=== PATIENT | male | born 1965 | race Caucasian/White ===

== ENCOUNTER 2019-07-31 05:20 | Emergency (ER) | payer OTHER ==
[~2019-07-31] VITALS: Ht 188 cm; Wt 172.4 kg
[2019-07-31 06:43] LABS: BASOPHILS ABSOLUTE AUTO 0.07 K/mm3 (0.00-0.23); BASOPHILS PERCENT AUTO 1 % (0-2); EOSINOPHILS ABSOLUTE AUTO 0.24 K/mm3 (0.00-0.68); EOSINOPHILS PERCENT AUTO 3 % (0-6); Hematocrit 44.4 % (37.0-53.0); Hemoglobin 14.9 g/dL (13.5-17.5); IMMATURE GRAN ABSOLUTE AUTO 0.02 K/mm3 (0.00-0.10); IMMATURE GRAN PERCENT AUTO 0 % (0-1); LYMPHOCYTES ABSOLUTE AUTO 1.05 K/mm3 (0.84-5.20); LYMPHOCYTES PERCENT AUTO 11 % (21-46); MONOCYTES ABSOLUTE AUTO 0.56 K/mm3 (0.16-1.47); MONOCYTES PERCENT AUTO 6 % (4-13); Mean Corpuscular HGB 30.5 pg (26.0-34.0); Mean Corpuscular HGB Conc 33.6 g/dL (31.5-36.5); Mean Corpuscular Volume 91 fL (80-100); Mean Platelet Volume 10.6 fL (9.1-12.4); NEUTROPHILS ABSOLUTE AUTO 7.72 K/mm3 (1.96-9.15); NEUTROPHILS PERCENT AUTO 80 % (41-73); Platelet Count 203 K/mm3 (150-400); RDW Coefficient Variation 13.2 % (11.7-14.2); RDW Standard Deviation 43.7 fL (35.1-46.3); Red Blood Cell Count 4.89 M/mm3 (4.30-5.90); White Blood Cell Count 9.66 K/mm3 (4.00-11.30)
[2019-07-31 06:43] LABS: Source, Urine Clean Catch
[2019-07-31 06:45] LABS: Bilirubin, Urine Neg (Neg); Blood, Urine Neg (Neg); Glucose Qualitative, Urine 4+ (Neg); Ketones, Urine Neg (Neg); Leukocyte Esterase, Urine Neg (Neg); Nitrite, Urine Neg (Neg); Protein, Urine Neg (Neg); Urobilinogen, Urine NORM (Normal)
[2019-07-31 06:46] LABS: Appearance, Urine Clear (Clear); Color, Urine Pale Yellow (P-Yellow)
[2019-07-31 07:04] LABS: Albumin, Blood 2.8 g/dL (3.4-5.0); Albumin/Globulin Ratio 0.5 (0.8-1.8); Alk Phos 174 U/L (50-136); Anion Gap 9 mmol/L (6-16); Bilirubin, Total 0.5 mg/dL (0.1-1.0); Blood Urea Nitrogen 19 mg/dL (8-24); Bun/Creatinine Ratio 24.5 (12.0-20.0); CO2, Blood 29 mmol/L (21-32); Chloride, Blood 90 mmol/L (98-108); Creatinine, Blood 0.77 mg/dL (0.60-1.20); Globulin, Blood 5.1 g/dL (2.2-4.0); Glomerular Filtration Rate >60 (60-); Sodium, Blood 128 mmol/L (136-145); Total Protein, Blood 7.9 g/dL (6.4-8.2)
[2019-07-31 07:06] LABS: Alanine Aminotransfer (ALT/SGP 69 U/L (12-78); Aspartate Aminotrans (AST/SGOT 95 U/L (12-37); Glucose, Blood 661 mg/dL (70-99); Potassium, Blood 5.4 mmol/L (3.5-5.5)
[2019-07-31] MEDS ORDERED: METF500 PO (08:14)
== END 2019-07-31 08:29 | disposition home or self-care (01) ==
LOC: ER 05:20
PROVIDERS: Emergency Medicine
DX: S09.90XA Unspecified injury of head, initial encounter (principal); E11.65 Type 2 diabetes mellitus with hyperglycemia; I10 Essential (primary) hypertension; Z86.73 Personal history of transient ischemic attack (TIA), and cerebral infarction without residual deficits; Z79.84 Long term (current) use of oral hypoglycemic drugs; W18.30XA Fall on same level, unspecified, initial encounter; Y92.009 Unspecified place in unspecified non-institutional (private) residence as the place of occurrence of the external cause
CPT/HCPCS: 36415; 70450; 80053; 81003; 82947; 85025; 99284-25; J1815

== ENCOUNTER 2019-08-03 19:13 | Emergency (ER) | payer OTHER ==
[~2019-08-03] VITALS: Ht 180.3 cm; Wt 158.8 kg
[~2019-08-03 19:13] MED LIST: METF500 PO
[2019-08-03 21:54] LABS: Creatine Kinase MB 3.5 ng/mL (0.0-3.6)
[2019-08-03 22:05] LABS: Alanine Aminotransfer (ALT/SGP 52 U/L (12-78); Albumin, Blood 2.8 g/dL (3.4-5.0); Albumin/Globulin Ratio 0.6 (0.8-1.8); Alk Phos 114 U/L (50-136); Anion Gap 13 mmol/L (6-16); Aspartate Aminotrans (AST/SGOT 81 U/L (12-37); Blood Urea Nitrogen 26 mg/dL (8-24); Bun/Creatinine Ratio 29.7 (12.0-20.0); CO2, Blood 24 mmol/L (21-32); CPK Creatine Kinase 279 U/L (39-308); Calcium, Blood 7.9 mg/dL (8.5-10.1); Chloride, Blood 91 mmol/L (98-108); Creatine Kinase MB Index 1.3 (0.0-4.0); Creatinine, Blood 0.88 mg/dL (0.60-1.20); Globulin, Blood 4.8 g/dL (2.2-4.0); Glomerular Filtration Rate >60 (60-); Glucose, Blood 192 mg/dL (70-99); Potassium, Blood 4.7 mmol/L (3.5-5.5); Sodium, Blood 128 mmol/L (136-145); Total Protein, Blood 7.6 g/dL (6.4-8.2)
[2019-08-03] MEDS ORDERED: ACETAMINOPHEN500 MG PO (22:17)
== END 2019-08-04 01:59 | disposition home or self-care (01) ==
LOC: ER 19:13
PROVIDERS: Emergency Medicine
DX: E11.65 Type 2 diabetes mellitus with hyperglycemia (principal); H10.9 Unspecified conjunctivitis; R53.1 Weakness; F43.9 Reaction to severe stress, unspecified; Z79.84 Long term (current) use of oral hypoglycemic drugs; Z87.891 Personal history of nicotine dependence; Z86.73 Personal history of transient ischemic attack (TIA), and cerebral infarction without residual deficits
CPT/HCPCS: 36415; 71045; 80053; 82550; 82553; 93005; 93010; 96360; 96361; 99284-25; J7030

== ENCOUNTER 2019-08-04 10:37 | Emergency (ER) | payer OTHER ==
[~2019-08-04] VITALS: Ht 185.4 cm; Wt 204.1 kg
[~2019-08-04 10:37] MED LIST changes: +ACETAMINOPHEN500 MG PO
== END 2019-08-04 10:47 | disposition home or self-care (01) ==
LOC: ER 10:37
DX: R53.1 Weakness (principal); I10 Essential (primary) hypertension; E11.9 Type 2 diabetes mellitus without complications; F31.9 Bipolar disorder, unspecified; Z79.84 Long term (current) use of oral hypoglycemic drugs; Z86.73 Personal history of transient ischemic attack (TIA), and cerebral infarction without residual deficits; Z87.891 Personal history of nicotine dependence
CPT/HCPCS: 99282

== ENCOUNTER 2021-02-18 16:04 | Emergency (ER) | payer OTHER ==
[~2021-02-18] VITALS: Ht 188 cm; Wt 142.9 kg
[2021-02-18 18:37] LABS: Influenza A, PCR NEGATIVE (NEGATIVE); Influenza B, PCR NEGATIVE (NEGATIVE); Resp Syncytial Virus, PCR NEGATIVE (NEGATIVE); SARS-Cov-2 (COVID-19) PCR, MMC NEGATIVE (NEGATIVE)
[2021-02-18] MEDS ORDERED: ALBU90OI INH (19:10)
== END 2021-02-18 19:30 | disposition home or self-care (01) ==
LOC: ER 16:04
PROVIDERS: Physician Assistant
DX: R06.02 Shortness of breath (principal); R07.9 Chest pain, unspecified; Z20.822 Contact with and (suspected) exposure to COVID-19; I10 Essential (primary) hypertension; E11.9 Type 2 diabetes mellitus without complications; Z86.73 Personal history of transient ischemic attack (TIA), and cerebral infarction without residual deficits; Z87.891 Personal history of nicotine dependence
CPT/HCPCS: 0241U; 71045; 93005; 93010; 99285-25

== ENCOUNTER 2021-02-27 16:10 | Emergency (ER) | payer OTHER ==
[~2021-02-27] VITALS: Ht 175.3 cm; Wt 99.8 kg
[~2021-02-27 16:10] MED LIST changes: +ALBU90OI INH
[2021-02-27 16:48] LABS: BASOPHILS ABSOLUTE AUTO 0.05 K/mm3 (0.00-0.23); BASOPHILS PERCENT AUTO 1 % (0-2); EOSINOPHILS PERCENT AUTO 2 % (0-6); Hematocrit 41.8 % (37.0-53.0); Hemoglobin 13.1 g/dL (13.5-17.5); IMMATURE GRAN ABSOLUTE AUTO 0.02 K/mm3 (0.00-0.10); IMMATURE GRAN PERCENT AUTO 0 % (0-1); LYMPHOCYTES ABSOLUTE AUTO 0.94 K/mm3 (0.84-5.20); LYMPHOCYTES PERCENT AUTO 10 % (21-46); MONOCYTES ABSOLUTE AUTO 0.58 K/mm3 (0.16-1.47); MONOCYTES PERCENT AUTO 6 % (4-13); Mean Corpuscular HGB 29.2 pg (26.0-34.0); Mean Corpuscular HGB Conc 31.3 g/dL (31.5-36.5); Mean Corpuscular Volume 93 fL (80-100); Mean Platelet Volume 10.4 fL (9.1-12.4); NEUTROPHILS ABSOLUTE AUTO 7.87 K/mm3 (1.96-9.15); NEUTROPHILS PERCENT AUTO 82 % (41-73); Platelet Count 221 K/mm3 (150-400); RDW Coefficient Variation 15.2 % (11.7-14.2); RDW Standard Deviation 52.6 fL (35.1-46.3); Red Blood Cell Count 4.48 M/mm3 (4.30-5.90); White Blood Cell Count 9.66 K/mm3 (4.00-11.30)
[2021-02-27 17:07] LABS: Alanine Aminotransfer (ALT/SGP 32 U/L (12-78); Albumin, Blood 2.6 g/dL (3.4-5.0); Albumin/Globulin Ratio 0.6 (0.8-1.8); Alk Phos 131 U/L (50-136); Anion Gap 5 mmol/L (6-16); Aspartate Aminotrans (AST/SGOT 32 U/L (12-37); Bilirubin, Total 0.7 mg/dL (0.1-1.0); Blood Urea Nitrogen 11 mg/dL (8-24); Bun/Creatinine Ratio 16.5 (12.0-20.0); CO2, Blood 31 mmol/L (21-32); Chloride, Blood 103 mmol/L (98-108); Creatinine, Blood 0.67 mg/dL (0.60-1.20); Globulin, Blood 4.7 g/dL (2.2-4.0); Glomerular Filtration Rate >60 (60-); Glucose, Blood 214 mg/dL (70-99); Magnesium, Blood 1.7 mg/dL (1.6-2.4); Potassium, Blood 3.7 mmol/L (3.5-5.5); Sodium, Blood 139 mmol/L (136-145); Total Protein, Blood 7.3 g/dL (6.4-8.2); Troponin I 0.058 ng/mL (0.000-0.040)
[2021-02-27] MEDS ORDERED: Lasix40 MG PO (17:58)
[2021-02-27] MEDS ORDERED: Norvasc5 MG PO (17:58)
== END 2021-02-27 18:05 | disposition left against medical advice (07) ==
LOC: ER 16:10
PROVIDERS: Emergency Medicine
DX: J96.01 Acute respiratory failure with hypoxia (principal); I10 Essential (primary) hypertension; I50.9 Heart failure, unspecified; R77.8 Other specified abnormalities of plasma proteins; E11.9 Type 2 diabetes mellitus without complications; Z87.891 Personal history of nicotine dependence
CPT/HCPCS: 71046; 80053; 83735; 83880; 84145; 84484; 85025; 93005; 93010; 99285-25; A9270

== ENCOUNTER 2021-10-11 15:33 | Emergency (ER) | payer SELFPAY ==
[~2021-10-11] VITALS: Ht 188 cm; Wt 131.5 kg
[~2021-10-11 15:33] MED LIST changes: +AMLO5 PO; +Lasix40 MG PO; +Norvasc5 MG PO
[2021-10-11] MEDS ORDERED: Norvasc5 MG PO (16:07)
[2021-10-11] MEDS ORDERED: FURO40 PO (16:07)
== END 2021-10-11 16:07 | disposition home or self-care (01) ==
LOC: ER 15:33
DX: Z76.0 Encounter for issue of repeat prescription (principal); Z86.73 Personal history of transient ischemic attack (TIA), and cerebral infarction without residual deficits; Z87.891 Personal history of nicotine dependence; Z79.899 Other long term (current) drug therapy
CPT/HCPCS: 99281

== ENCOUNTER 2022-02-14 10:24 | Emergency (ER) | payer SELFPAY ==
[~2022-02-14] VITALS: Ht 188 cm; Wt 136.1 kg
[~2022-02-14 10:24] MED LIST changes: +FURO40 PO
[2022-02-14] MEDS ORDERED: Lasix40 MG PO (13:45)
[2022-02-14] MEDS ORDERED: ALBU90OI INH (13:45)
[2022-02-14] MEDS ORDERED: Norvasc5 MG PO (13:45)
== END 2022-02-14 13:52 | disposition home or self-care (01) ==
LOC: ER 10:24
DX: Z76.0 Encounter for issue of repeat prescription (principal); I10 Essential (primary) hypertension; E11.9 Type 2 diabetes mellitus without complications; Z88.6 Allergy status to analgesic agent; Z79.899 Other long term (current) drug therapy; Z87.891 Personal history of nicotine dependence
CPT/HCPCS: 71046; 93005; 93010

== ENCOUNTER 2022-04-26 13:40 | Emergency (ER) | payer MEDICAID ==
[~2022-04-26] VITALS: Ht 177.8 cm; Wt 140.6 kg
[2022-04-26] MEDS ORDERED: AMLO5 PO (13:50)
[2022-04-26] MEDS ORDERED: FURO20 PO (13:50)
== END 2022-04-26 13:55 | disposition home or self-care (01) ==
LOC: ER 13:40
DX: Z76.0 Encounter for issue of repeat prescription (principal); I10 Essential (primary) hypertension; Z88.6 Allergy status to analgesic agent; Z79.899 Other long term (current) drug therapy; Z86.73 Personal history of transient ischemic attack (TIA), and cerebral infarction without residual deficits; Z87.891 Personal history of nicotine dependence
CPT/HCPCS: 99281

== ENCOUNTER 2022-06-16 14:39 | Emergency (ER) | payer MEDICAID ==
[~2022-06-16] VITALS: Ht 188 cm; Wt 140.6 kg
[~2022-06-16 14:39] MED LIST changes: +FURO20 PO
[2022-06-16] MEDS ORDERED: Amlodipine Besyl5 MG PO (15:18)
[2022-06-16] MEDS ORDERED: Lasix40 MG PO (15:18)
== END 2022-06-16 15:27 | disposition home or self-care (01) ==
LOC: ER 14:39
DX: Z76.0 Encounter for issue of repeat prescription (principal); I10 Essential (primary) hypertension; Z79.899 Other long term (current) drug therapy; Z86.73 Personal history of transient ischemic attack (TIA), and cerebral infarction without residual deficits
CPT/HCPCS: 99281

== ENCOUNTER 2022-07-19 15:38 | Emergency (ER) | payer MEDICAID ==
[~2022-07-19] VITALS: Ht 188 cm; Wt 136.1 kg
[~2022-07-19 15:38] MED LIST changes: +Amlodipine Besyl5 MG PO
[2022-07-19 15:50] VITALS: BP 145/65
[2022-07-19] MEDS ORDERED: Norvasc5 MG PO (15:52)
[2022-07-19] MEDS ORDERED: Lasix40 MG PO (15:52)
== END 2022-07-19 15:54 | disposition home or self-care (01) ==
LOC: ER 15:38
DX: Z76.0 Encounter for issue of repeat prescription (principal); Z88.8 Allergy status to other drugs, medicaments and biological substances; Z79.899 Other long term (current) drug therapy; I10 Essential (primary) hypertension
CPT/HCPCS: 99281

== ENCOUNTER 2022-08-24 18:26 | Emergency (ER) | payer MEDICAID ==
[~2022-08-24] VITALS: Ht 188 cm; Wt 127.0 kg
[2022-08-24 21:18] VITALS: BP 184/110
== END 2022-08-24 22:24 | disposition home or self-care (01) ==
LOC: ER 18:26
DX: Z76.0 Encounter for issue of repeat prescription (principal); I10 Essential (primary) hypertension; Z86.73 Personal history of transient ischemic attack (TIA), and cerebral infarction without residual deficits; Z88.6 Allergy status to analgesic agent; Z79.899 Other long term (current) drug therapy
CPT/HCPCS: 99281

== ENCOUNTER 2022-08-25 11:22 | Inpatient (IN) | payer MEDICAID ==
[~2022-08-25] VITALS: Ht 185.4 cm; Wt 137.0 kg
[2022-08-25 11:48] LABS: BASOPHILS ABSOLUTE AUTO 0.06 K/mm3 (0.00-0.23); BASOPHILS PERCENT AUTO 1 % (0-2); EOSINOPHILS ABSOLUTE AUTO 0.23 K/mm3 (0.00-0.68); EOSINOPHILS PERCENT AUTO 3 % (0-6); Hematocrit 42.1 % (37.0-53.0); IMMATURE GRAN ABSOLUTE AUTO 0.02 K/mm3 (0.00-0.10); IMMATURE GRAN PERCENT AUTO 0 % (0-1); LYMPHOCYTES ABSOLUTE AUTO 0.96 K/mm3 (0.84-5.20); LYMPHOCYTES PERCENT AUTO 12 % (21-46); MONOCYTES ABSOLUTE AUTO 0.45 K/mm3 (0.16-1.47); MONOCYTES PERCENT AUTO 6 % (4-13); Mean Corpuscular HGB 29.4 pg (26.0-34.0); Mean Corpuscular HGB Conc 33.3 g/dL (31.5-36.5); Mean Corpuscular Volume 88 fL (80-100); Mean Platelet Volume 9.8 fL (9.1-12.4); NEUTROPHILS ABSOLUTE AUTO 6.32 K/mm3 (1.96-9.15); NEUTROPHILS PERCENT AUTO 79 % (41-73); Platelet Count 233 K/mm3 (150-400); RDW Coefficient Variation 13.5 % (11.7-14.2); RDW Standard Deviation 43.5 fL (35.1-46.3); Red Blood Cell Count 4.77 M/mm3 (4.30-5.90); White Blood Cell Count 8.04 K/mm3 (4.00-11.30)
[2022-08-25 12:38] LABS: Albumin, Blood 2.3 g/dL (3.4-5.0); Albumin/Globulin Ratio 0.5 (0.8-1.8); Bilirubin, Total 0.6 mg/dL (0.1-1.0); Bun/Creatinine Ratio 10.9 (12.0-20.0); Calcium, Blood 8.7 mg/dL (8.5-10.1); Creatinine, Blood 0.74 mg/dL (0.60-1.20); Globulin, Blood 4.8 g/dL (2.2-4.0); Potassium, Blood 4.1 mmol/L (3.5-5.5); Total Protein, Blood 7.1 g/dL (6.4-8.2)
[2022-08-25 15:30] VITALS: BP 183/99
[2022-08-25 19:25] VITALS: BP 159/88
--- NOTE | 2022-08-25 20:23 | NUR ---
LATE ENTRY ER ADMIT. PT ADMITTED FROM ER. INDEPENDENT IN THE ROOM, 2L NC, SLEEPY BUT AROUSABLE. EXPRESSING ANGER WITH STAFF WHEN AWOKEN FOR CARES AND TREATMENT. PT HAS REFUSED BLOOD GLUCOSE STICKS AND INSULIN. I EXPRESSED IMPORTANCE OF BLOOD SUGAR CONTROL AND EFFECTS IT HAS ON BODY SYSTEMS. MUCH MORE EDUCATION WILL BE REQUIRED. PT REFUSED 2 RN SKIN CHECK. CHARGE NURSE NOTIFIED. ORIENTED X4
--- NOTE | 2022-08-26 04:33 | NUR ---
SHIFT SUMMARY 57 YR M ADMITTED ON 08/25/22 FOR ACUTE CHF. FULL CODE. PT IS REFUSING ALL CARE. HE WOULD NOT ALLOW A BLOOD SUGAR CHECK AND STATED THAT STAFF WAS BOTHERING HIM BY BEING IN HIS ROOM. HE WAS LEFT ALONE W/ THE EXCEPTION OF ROUNDING AND VITALS AND APPEARS TO HAVE SLEPT THROUGH THE NIGHT. HE DID NOT CALL FOR ANY ASSISTANCE.
[2022-08-26 05:04] VITALS: BP 143/70
[2022-08-26 06:17] LABS: BASOPHILS ABSOLUTE AUTO 0.05 K/mm3 (0.00-0.23); BASOPHILS PERCENT AUTO 1 % (0-2); EOSINOPHILS ABSOLUTE AUTO 0.25 K/mm3 (0.00-0.68); EOSINOPHILS PERCENT AUTO 3 % (0-6); Hematocrit 38.8 % (37.0-53.0); Hemoglobin 12.7 g/dL (13.5-17.5); IMMATURE GRAN ABSOLUTE AUTO 0.02 K/mm3 (0.00-0.10); IMMATURE GRAN PERCENT AUTO 0 % (0-1); LYMPHOCYTES ABSOLUTE AUTO 0.91 K/mm3 (0.84-5.20); LYMPHOCYTES PERCENT AUTO 10 % (21-46); MONOCYTES PERCENT AUTO 7 % (4-13); Mean Corpuscular HGB 28.7 pg (26.0-34.0); Mean Corpuscular HGB Conc 32.7 g/dL (31.5-36.5); Mean Corpuscular Volume 88 fL (80-100); Mean Platelet Volume 9.8 fL (9.1-12.4); NEUTROPHILS ABSOLUTE AUTO 7.09 K/mm3 (1.96-9.15); NEUTROPHILS PERCENT AUTO 80 % (41-73); Platelet Count 230 K/mm3 (150-400); RDW Coefficient Variation 13.5 % (11.7-14.2); RDW Standard Deviation 43.1 fL (35.1-46.3); Red Blood Cell Count 4.42 M/mm3 (4.30-5.90); White Blood Cell Count 8.92 K/mm3 (4.00-11.30)
[2022-08-26 06:37] LABS: Bun/Creatinine Ratio 11.7 (12.0-20.0); Calcium, Blood 8.4 mg/dL (8.5-10.1); Creatinine, Blood 0.86 mg/dL (0.60-1.20); Potassium, Blood 3.8 mmol/L (3.5-5.5)
[2022-08-26 07:21] VITALS: BP 137/84
--- NOTE | 2022-08-26 09:10 | NUR ---
PATIENT REFUSING CBG, INSULIN, AND LOVENOX. EDUCATED ABOUT IMPORTANCE OF BLOOD GLUCOSE CONTROL AND PREVENTION OF BLOOD CLOTS WHILE IN THE HOSPITAL. CONTINUED TO REFUSE, STATING STAFF "ARE POKING ME TOO MUCH." WILL CONTINUE TO MONITOR.
--- NOTE | 2022-08-26 15:02 | NUR ---
PATIENT DISCHARGE ON HOLD. PT HAS HEALTH INSURANCE FROM [place], SO HOME OXYGEN CANNOT BE BILLED AT THIS TIME. HE IS REQUIRING 2 L/MIN AT REST AND 4 L/MIN NC WITH ACTIVITY. PT STATED HE LIVES IN A TENT ON SOMEONE'S PROPERTY IN [place]. HE WILL ALSO NEED TRANSPORTATION HOME HE HAS NO FRIENDS OR FAMILY IN THE AREA.
[2022-08-26 15:11] VITALS: BP 142/84
--- NOTE | 2022-08-26 18:08 | NUR ---
SHIFT SUMMARY: NO ACUTE EVENTS. REFUSED CBG'S ALL DAY, NO SSI GIVEN. TELE IS SR WITH RATE IN THE 80'S, NO REPORTED ECTOPY. GOOD APPETITE, TOLERATING PO. USING URINAL INDEPENDENTLY. O2 @ 2 L/MIN NC, OTHER VSS.
[2022-08-26 19:36] VITALS: BP 135/65
[2022-08-27 04:44] VITALS: BP 139/74
--- NOTE | 2022-08-27 04:59 | NUR ---
SHIFT SUMMARY 57 YR M ADMITTED ON 08/25/22 FOR EXACERBATION OF CHF. FULL CODE. NO ACUTE CHANGES THIS SHIFT. PT STATED THAT HE WILL NOT ALLOW ANYONE TO "POKE" HIM SO NO CBS'S WERE TAKEN AND NO INSULIN WAS ADMINISTERED. PT JUST WANTS TO BE LEFT ALONE TO SLEEP. THERE HAS BEEN VERY LITTLE INTERACTION WITH HIM.
[2022-08-27 07:55] VITALS: BP 156/91
--- NOTE | 2022-08-27 10:06 | NUR ---
PT REFUSING CHEMBG TO BE COMPLETED SO UNABLE TO GIVE INSULIN. DISCUSSED DIABETES AND POTENTIAL SIDE EFFECTS OF NOT KEEPING TRACK OF HIS DIABETES AND NOT BEING TREATED FOR HYOPERGLYCEMIA. PT STATES HE CAN'T STAND THE THOUGHT OF HIS FINGERS BEING POKED AND HATES NEEDLES. STATES HE USED TO TAKE METFORMIN BUT DIDN'T LIKE THE DIARRHEA/LOOSE STOOL SIDE EFFECT. FRIENDLY AND CONVERSATIONAL ABOUT TOPIC. STATED HE HAS BEEN ATTEMPTING TO ORDER HEALTHIER ITEMS ON THE MENU BUT IS CONCERNED ABOUT WHEN HE DISCHARGES AND FOLLOWING A HELATHIER DIET AT HOME. STATES HE JUST WISHES HE COULD HAVE SOMEONE TO JUST TAKE CARE OF HIM.
[2022-08-27 16:02] VITALS: BP 137/69
--- NOTE | 2022-08-27 18:29 | NUR ---
SHIFT SUMMARY PT INDEPENDENT INTO BATHROOM. REPORTS VOIDING LARGE AMOUNTS. DOZING ON AND OFF MOST OF DAY. CHECKED O2 SAT AFTER GOING TO BATHROOM WITH NO O2 AND SATS 86%. O2 BACK ON AND UP TO 95% ON 4L. DROPPED O2 TO 3L AND MONITERED FOR AWHILE. REMAINED 95% ON 3L AND DROPPED HIM TO 2L. WILL CONTINUE TO MONITER TOLERATION AND NOTIFY ONCOMING SHIFT. PT HAS BEEN PLEASANT THROUGH THE DAY.
[2022-08-28 01:56] VITALS: BP 142/76
[2022-08-28 05:00] LABS: Calcium, Blood 9.3 mg/dL (8.5-10.1); Creatinine, Blood 0.9 mg/dL (0.60-1.20); Potassium, Blood 3.7 mmol/L (3.5-5.5)
--- NOTE | 2022-08-28 05:34 | NUR ---
PT IS A&O4, INDEPENDENT IN THE ROOM, 2L NC, VSS, HOME O2 TO BE ARRANGED BEFORE DC, NO COMPLAINTS OF PAIN OR DISCOMFORT THIS SHIFT CONTINUE POC
[2022-08-28 07:38] VITALS: BP 144/106
[2022-08-28] MEDS ORDERED: FURO40 PO (13:27)
[2022-08-28] MEDS ORDERED: GLIP5 PO (13:28)
[2022-08-28] MEDS ORDERED: METF500 PO (13:28)
[2022-08-28] MEDS ORDERED: POTA10T PO (13:29)
[2022-08-28] MEDS ORDERED: LISI20 PO (13:31)
--- NOTE | 2022-08-28 14:13 | NUR ---
LISINOPRIL: CLARIFIED WITH DR. CHOI IF THE PATIENT SHOULD BE SENT HOME WITH LISINOPRIL A RX. SHE CLARIFIED THAT THE PATIENT SHOULD GO HOME WITH THIS MEDICATION. CALLED IN TO [facility] PER PATIENT REQUEST.
--- NOTE | 2022-08-28 15:15 | NUR ---
DISCHARGE SUMMARY: PT ESCORTED OUT IN WHEELCHAIR BY CORN CROP SUPERVISOR TO FRONT ENTRANCE TO MEET CAB. PT STATED UNDERSTANING OF DISCHARGE INSTRUCTIONS AND MEDICATION COMPLIANCE. PT DISCHARGED WITH HOME 02 AND NO CONCERNS OR QUESTIONS.
== END 2022-08-28 15:18 | disposition home or self-care (01) | DRG 291 ==
LOC: ER 11:22 → MEDS 11:23 → ENPENDDIS 08-26 10:24 → MEDS 08-27 13:50
PROVIDERS: Emergency Medicine; Internal Medicine; ADMIT Family Medicine
DX: I11.0 Hypertensive heart disease with heart failure (principal); I50.31 Acute diastolic (congestive) heart failure; J96.01 Acute respiratory failure with hypoxia; E11.65 Type 2 diabetes mellitus with hyperglycemia; E66.9 Obesity, unspecified; Z68.36 Body mass index [BMI] 36.0-36.9, adult; K43.9 Ventral hernia without obstruction or gangrene; F31.9 Bipolar disorder, unspecified; Z99.81 Dependence on supplemental oxygen; Z88.8 Allergy status to other drugs, medicaments and biological substances; Z79.899 Other long term (current) drug therapy; Z79.51 Long term (current) use of inhaled steroids; Z87.81 Personal history of (healed) traumatic fracture; Z86.73 Personal history of transient ischemic attack (TIA), and cerebral infarction without residual deficits; Z91.199 Patient's noncompliance with other medical treatment and regimen due to unspecified reason; Z87.891 Personal history of nicotine dependence
CPT/HCPCS: 36415; 71045; 80048; 80053; 83036; 83880; 84484; 85025; 93005; 93010; 93308; 93321; 94760; 94761; 96374; 96375; 96376; 99285-25; A9270; G0378; J0360; J1650; J1815; J1940

== ENCOUNTER 2023-03-01 13:32 | Emergency (ER) | payer MEDICAID ==
[~2023-03-01] VITALS: Ht 172.7 cm; Wt 79.4 kg
[~2023-03-01 13:32] MED LIST changes: +AZIT250 PO; +FLUT1DIS5 INH; +GLIP5 PO; +KLOR-CON 1010 ME9 PO; +LASIX40 MG PO; +LISI20 PO; +METPRE4DP PO; +NIFE60ER PO; +POTA10T PO; +TORSE20 PO; +TRAM50 PO
[2023-03-01 14:28] VITALS: BP 142/87
[2023-03-01] MEDS ORDERED: TORSE20 PO (14:35)
[2023-03-01] MEDS ORDERED: NIFE60ER PO (14:35)
[2023-03-01] MEDS ORDERED: ZESTRIL40 M1 PO (14:35)
== END 2023-03-01 14:39 | disposition home or self-care (01) ==
LOC: ER 13:32
DX: Z76.0 Encounter for issue of repeat prescription (principal); K40.90 Unilateral inguinal hernia, without obstruction or gangrene, not specified as recurrent; I11.0 Hypertensive heart disease with heart failure; I50.9 Heart failure, unspecified; J44.9 Chronic obstructive pulmonary disease, unspecified; F31.9 Bipolar disorder, unspecified; Z79.84 Long term (current) use of oral hypoglycemic drugs; Z79.899 Other long term (current) drug therapy; Z88.6 Allergy status to analgesic agent
CPT/HCPCS: 99281

== ENCOUNTER 2023-03-25 11:36 | Emergency (ER) | payer MEDICAID ==
[~2023-03-25] VITALS: Ht 185.4 cm; Wt 127.0 kg
[~2023-03-25 11:36] MED LIST changes: +ZESTRIL40 M1 PO
[2023-03-25 11:53] LABS: BASOPHILS ABSOLUTE AUTO 0.06 K/mm3 (0.00-0.23); BASOPHILS PERCENT AUTO 1 % (0-2); EOSINOPHILS ABSOLUTE AUTO 0.38 K/mm3 (0.00-0.68); EOSINOPHILS PERCENT AUTO 5 % (0-6); Hematocrit 36.7 % (37.0-53.0); Hemoglobin 11.8 g/dL (13.5-17.5); IMMATURE GRAN ABSOLUTE AUTO 0.01 K/mm3 (0.00-0.10); IMMATURE GRAN PERCENT AUTO 0 % (0-1); LYMPHOCYTES ABSOLUTE AUTO 1.09 K/mm3 (0.84-5.20); LYMPHOCYTES PERCENT AUTO 15 % (21-46); MONOCYTES ABSOLUTE AUTO 0.51 K/mm3 (0.16-1.47); MONOCYTES PERCENT AUTO 7 % (4-13); Mean Corpuscular HGB 28.6 pg (26.0-34.0); Mean Corpuscular HGB Conc 32.2 g/dL (31.5-36.5); Mean Corpuscular Volume 89 fL (80-100); Mean Platelet Volume 10.1 fL (9.1-12.4); NEUTROPHILS PERCENT AUTO 73 % (41-73); Platelet Count 223 K/mm3 (150-400); RDW Coefficient Variation 13.4 % (11.7-14.2); RDW Standard Deviation 43.8 fL (35.1-46.3); Red Blood Cell Count 4.12 M/mm3 (4.30-5.90); White Blood Cell Count 7.45 K/mm3 (4.00-11.30)
[2023-03-25 12:11] LABS: Albumin, Blood 1.8 g/dL (3.4-5.0); Albumin/Globulin Ratio 0.4 (0.8-1.8); Bilirubin, Total 0.1 mg/dL (0.1-1.0); Bun/Creatinine Ratio 17.5 (12.0-20.0); Calcium, Blood 7.8 mg/dL (8.5-10.1); Creatinine, Blood 0.97 mg/dL (0.60-1.20); Globulin, Blood 4.8 g/dL (2.2-4.0); Potassium, Blood 3.8 mmol/L (3.5-5.5); Total Protein, Blood 6.6 g/dL (6.4-8.2)
[2023-03-25 12:36] LABS: Source, Urine Voided
[2023-03-25 12:50] LABS: Appearance, Urine Clear (Clear); Bilirubin, Urine Neg (Neg); Blood, Urine 3+ (Neg); Glucose Qualitative, Urine Neg (Neg); Ketones, Urine Neg (Neg); Leukocyte Esterase, Urine Neg (Neg); Nitrite, Urine Neg (Neg); Protein, Urine 4+ (Neg); Urobilinogen, Urine NORM (Normal)
[2023-03-25 13:05] LABS: Color, Urine Pale Yellow (P-Yellow)
[2023-03-25 13:10] LABS: Other Crystals Few /hpf; White Blood Cells, Urine 0-2 /hpf (0-5)
[2023-03-25 13:11] LABS: Bacteria Few /hpf; Mucus Light (0-Heavy); Squamous Epithelial Cells Rare /hpf (Few)
[2023-03-25 14:48] VITALS: BP 161/98
== END 2023-03-25 15:50 | disposition home or self-care (01) ==
LOC: ER 11:36
PROVIDERS: Emergency Medicine
DX: N50.89 Other specified disorders of the male genital organs (principal); K42.9 Umbilical hernia without obstruction or gangrene; I11.0 Hypertensive heart disease with heart failure; I50.9 Heart failure, unspecified; J44.9 Chronic obstructive pulmonary disease, unspecified; Z88.6 Allergy status to analgesic agent; Z79.84 Long term (current) use of oral hypoglycemic drugs; Z79.51 Long term (current) use of inhaled steroids; Z79.899 Other long term (current) drug therapy; Z87.891 Personal history of nicotine dependence
CPT/HCPCS: 76870; 80053; 81001; 85025; 99285-25; A9270

== ENCOUNTER 2023-05-25 14:38 | Emergency (ER) | payer OTHER ==
[~2023-05-25] VITALS: Ht 188 cm; Wt 136.1 kg
[2023-05-25 14:52] VITALS: BP 175/108
[2023-06-11] MEDS ORDERED: Aspir 8181 MG PO (08:52)
[2023-06-11] MEDS ORDERED: TORSE20 PO (08:53)
[2023-06-11] MEDS ORDERED: ALBU90OI INH (10:27)
[2023-06-11] MEDS ORDERED: AMOCLA875 PO (10:27)
[2023-06-11] MEDS ORDERED: Prednisone20 MG PO (10:27)
[2023-06-22] MEDS ORDERED: ALBU90OI INH (18:40)
== END 2023-05-25 15:51 | disposition home or self-care (01) ==
LOC: ER 14:38
DX: Z76.0 Encounter for issue of repeat prescription (principal); Z59.811 Housing instability, housed, with risk of homelessness; Z99.81 Dependence on supplemental oxygen; I11.0 Hypertensive heart disease with heart failure; I50.9 Heart failure, unspecified; J44.9 Chronic obstructive pulmonary disease, unspecified; Z87.891 Personal history of nicotine dependence; F31.9 Bipolar disorder, unspecified; Z86.73 Personal history of transient ischemic attack (TIA), and cerebral infarction without residual deficits; Z87.19 Personal history of other diseases of the digestive system; Z79.51 Long term (current) use of inhaled steroids; Z79.84 Long term (current) use of oral hypoglycemic drugs; Z79.899 Other long term (current) drug therapy; Z88.6 Allergy status to analgesic agent
CPT/HCPCS: 99281

== ENCOUNTER 2023-07-18 18:46 | Inpatient (IN) | payer OTHER ==
[~2023-07-18] VITALS: Ht 190.5 cm; Wt 147.2 kg
[~2023-07-18 18:46] MED LIST changes: +AMOCLA875 PO; +Aspir 8181 MG PO; +Prednisone20 MG PO
[2023-07-18] MEDS ORDERED: DOXA2 PO (19:11)
[2023-07-18] MEDS ORDERED: FLUT1DIS5 INH (19:13)
[2023-07-18] MEDS ORDERED: Furosemide 10 MG/ML 10ML Vial IV ONE (22:00)
[2023-07-18] MEDS ORDERED: Acetaminophen 500 MG Tab PO ONE (22:05)
[2023-07-18] MEDS ORDERED: OxyCODONE HCL 5 MG TAB PO ONE (22:05)
[2023-07-18] MEDS ORDERED: Methocarbamol 500 MG Tab PO ONE (22:05)
[2023-07-18 22:32] LABS: BASOPHILS ABSOLUTE AUTO 0.04 K/mm3 (0.00-0.23); BASOPHILS PERCENT AUTO 1 % (0-2); EOSINOPHILS ABSOLUTE AUTO 0.21 K/mm3 (0.00-0.68); EOSINOPHILS PERCENT AUTO 4 % (0-6); Hematocrit 32.9 % (37.0-53.0); Hemoglobin 10.6 g/dL (13.5-17.5); IMMATURE GRAN PERCENT AUTO 0 % (0-1); LYMPHOCYTES ABSOLUTE AUTO 1.07 K/mm3 (0.84-5.20); LYMPHOCYTES PERCENT AUTO 19 % (21-46); MONOCYTES ABSOLUTE AUTO 0.42 K/mm3 (0.16-1.47); MONOCYTES PERCENT AUTO 7 % (4-13); Mean Corpuscular HGB 29.3 pg (26.0-34.0); Mean Corpuscular HGB Conc 32.2 g/dL (31.5-36.5); Mean Corpuscular Volume 91 fL (80-100); Mean Platelet Volume 9.6 fL (9.1-12.4); NEUTROPHILS ABSOLUTE AUTO 3.92 K/mm3 (1.96-9.15); NEUTROPHILS PERCENT AUTO 69 % (41-73); Platelet Count 205 K/mm3 (150-400); RDW Coefficient Variation 13.6 % (11.7-14.2); RDW Standard Deviation 45.7 fL (35.1-46.3); Red Blood Cell Count 3.62 M/mm3 (4.30-5.90); White Blood Cell Count 5.66 K/mm3 (4.00-11.30)
[2023-07-18 22:50] LABS: Bun/Creatinine Ratio 19.6 (12.0-20.0); Calcium, Blood 8.1 mg/dL (8.5-10.1); Creatinine, Blood 0.97 mg/dL (0.60-1.20); Potassium, Blood 4.7 mmol/L (3.5-5.5)
[2023-07-18] MEDS ORDERED: Ondansetron HCl 2 MG / ML 2ML Vial IV PRN (23:15)
[2023-07-19] MEDS ORDERED: Metolazone 5 MG Tab PO SCH (01:00)
[2023-07-19 01:08] VITALS: BP 160/83
--- NOTE | 2023-07-19 04:43 | NUR ---
ADMIT SUMMARY A/OX4. 5L NC. BASELINE 4L CONTINUOUS. DRY/FLAKY SKIN TO BILAT FEET, WITH OVERGROWN TOENAILS. PT HAS NOT AMBULATED BUT WAS AMBULATING 1 ASSIST [facility]WW AT [facility] PRIOR TO HOSPITALIZATION. SWELLING TO SCROTUM AND LOWER EXTREMITIES. PENDING URINE SAMPLE COLLECTION. URINAL AT BEDSIDE.
[2023-07-19 06:08] VITALS: BP 143/78
[2023-07-19 06:12] LABS: Source, Urine Clean Catch
[2023-07-19 06:20] LABS: Appearance, Urine Clear (Clear); Bilirubin, Urine Neg (Neg); Blood, Urine 2+ (Neg); Color, Urine Yellow (P-Yellow); Glucose Qualitative, Urine Neg (Neg); Ketones, Urine Neg (Neg); Leukocyte Esterase, Urine Neg (Neg); Nitrite, Urine Neg (Neg); Protein, Urine 4+ (Neg); Urobilinogen, Urine NORM (Normal); pH, Urine 6.5 (5.0-8.0)
[2023-07-19 06:45] LABS: Bacteria Rare /hpf; Squamous Epithelial Cells Not Seen /hpf (Few); White Blood Cells, Urine Not Seen /hpf (0-5)
[2023-07-19 07:37] VITALS: BP 159/77
[2023-07-19] MEDS ORDERED: Furosemide 10 MG / ML 2ML Vial IV SCH (09:00)
[2023-07-19] MEDS ORDERED: Enoxaparin 40 MG/0.4 ML SYR SC SCH (09:00)
--- NOTE | 2023-07-19 10:00 | NUR ---
pt was very irritable and not cooperative with care this am, refused to do anything until he got food, Dr. Tabares in ok for him to have regular diet, this was ordered and food brought to him, he was better after he ate and allowed assessment and meds, states he would like a young pretty nurse to come and hold his hand and comfort him, a/ox4, lungs are dim t/o, resp even and unlabored, no cough noted, currently on 5 liters o2 and is on 4 liters baseline, hrr, 3+ edema noted to b/l le, cap refill <3 sec, vs stable, afebrile, piv to lfa site is clear and patent, complains that lab hit his nerves in his hands and they both ache now, but is agreeable to have his labs drawn now, abd large soft nontender, voids via urinal, skin c/w/d, bruce, up ad kika in room, jodi, call light in reach.
[2023-07-19 10:50] LABS: BASOPHILS ABSOLUTE AUTO 0.06 K/mm3 (0.00-0.23); BASOPHILS PERCENT AUTO 1 % (0-2); EOSINOPHILS ABSOLUTE AUTO 0.19 K/mm3 (0.00-0.68); EOSINOPHILS PERCENT AUTO 3 % (0-6); Hemoglobin 12.4 g/dL (13.5-17.5); IMMATURE GRAN ABSOLUTE AUTO 0.01 K/mm3 (0.00-0.10); IMMATURE GRAN PERCENT AUTO 0 % (0-1); LYMPHOCYTES PERCENT AUTO 14 % (21-46); MONOCYTES ABSOLUTE AUTO 0.41 K/mm3 (0.16-1.47); MONOCYTES PERCENT AUTO 7 % (4-13); Mean Corpuscular HGB 29.1 pg (26.0-34.0); Mean Corpuscular HGB Conc 31.8 g/dL (31.5-36.5); Mean Corpuscular Volume 92 fL (80-100); Mean Platelet Volume 9.6 fL (9.1-12.4); NEUTROPHILS ABSOLUTE AUTO 4.76 K/mm3 (1.96-9.15); NEUTROPHILS PERCENT AUTO 75 % (41-73); Platelet Count 237 K/mm3 (150-400); RDW Coefficient Variation 13.5 % (11.7-14.2); RDW Standard Deviation 45.5 fL (35.1-46.3); Red Blood Cell Count 4.26 M/mm3 (4.30-5.90); White Blood Cell Count 6.33 K/mm3 (4.00-11.30)
[2023-07-19 11:16] LABS: Albumin, Blood 1.2 g/dL (3.4-5.0); Albumin/Globulin Ratio 0.2 (0.8-1.8); Bilirubin, Total 0.2 mg/dL (0.1-1.0); Bun/Creatinine Ratio 18.1 (12.0-20.0); Calcium, Blood 8.7 mg/dL (8.5-10.1); Creatinine, Blood 0.99 mg/dL (0.60-1.20); Globulin, Blood 4.9 g/dL (2.2-4.0); Total Protein, Blood 6.1 g/dL (6.4-8.2)
[2023-07-19 15:06] VITALS: BP 154/77
--- NOTE | 2023-07-19 18:03 | NUR ---
pt has been sleeping throughout the day, has been more cooperative after he ate, states he's breathing a bit better and put out a lot of urine, no further changes this shift. call light in reach.
[2023-07-19] MEDS ORDERED: TraMADol HCl 50 MG Tab PO PRN (18:35)
[2023-07-19] MEDS ORDERED: Mometasone/Formoterol MDI 200/5 mcg 13 GM INH SCH (18:45)
[2023-07-19 19:43] VITALS: BP 145/78
--- NOTE | 2023-07-19 20:53 | NUR ---
PT REFUSED ASSESSMENT THIS EVENING. STATED "YOU CAN GO TO HELL" FOR WAKING HIM UP. ATTEMPTED TO EDUCATE PATIENT ON CARE AND INTERVENTIONS AND REFUSED. NO MOTIVATION TO LISTEN AT THIS TIME. EMPTIED URINAL. PT REFUSED BED ALARM.
[2023-07-20 04:44] VITALS: BP 153/81
--- NOTE | 2023-07-20 05:40 | NUR ---
PT WOKE UP HAD REQUESTED COFFEE, REPORTS PAIN UNDER CONTROL AT THIS TIME.
[2023-07-20 07:40] VITALS: BP 162/84
[2023-07-20] MEDS ORDERED: Potassium Chloride 20 MEQ TabCR PO SCH (08:00)
[2023-07-20] MEDS ORDERED: Aspirin 81 MG TabEC PO SCH (09:00)
[2023-07-20] MEDS ORDERED: Lisinopril 20 MG Tab PO SCH (09:00)
[2023-07-20 09:02] LABS: BASOPHILS ABSOLUTE AUTO 0.07 K/mm3 (0.00-0.23); BASOPHILS PERCENT AUTO 1 % (0-2); EOSINOPHILS PERCENT AUTO 4 % (0-6); Hematocrit 32.5 % (37.0-53.0); Hemoglobin 10.5 g/dL (13.5-17.5); IMMATURE GRAN ABSOLUTE AUTO 0.01 K/mm3 (0.00-0.10); IMMATURE GRAN PERCENT AUTO 0 % (0-1); LYMPHOCYTES ABSOLUTE AUTO 0.78 K/mm3 (0.84-5.20); LYMPHOCYTES PERCENT AUTO 14 % (21-46); MONOCYTES ABSOLUTE AUTO 0.43 K/mm3 (0.16-1.47); MONOCYTES PERCENT AUTO 8 % (4-13); Mean Corpuscular HGB 29.2 pg (26.0-34.0); Mean Corpuscular HGB Conc 32.3 g/dL (31.5-36.5); Mean Corpuscular Volume 91 fL (80-100); Mean Platelet Volume 9.4 fL (9.1-12.4); NEUTROPHILS PERCENT AUTO 73 % (41-73); Platelet Count 206 K/mm3 (150-400); RDW Coefficient Variation 13.3 % (11.7-14.2); RDW Standard Deviation 43.8 fL (35.1-46.3); Red Blood Cell Count 3.59 M/mm3 (4.30-5.90); White Blood Cell Count 5.59 K/mm3 (4.00-11.30)
[2023-07-20 09:33] LABS: Albumin/Globulin Ratio 0.3 (0.8-1.8); Bilirubin, Total 0.3 mg/dL (0.1-1.0); Bun/Creatinine Ratio 19.5 (12.0-20.0); Calcium, Blood 8.5 mg/dL (8.5-10.1); Creatinine, Blood 0.87 mg/dL (0.60-1.20); Globulin, Blood 3.8 g/dL (2.2-4.0); Potassium, Blood 3.8 mmol/L (3.5-5.5); Total Protein, Blood 4.8 g/dL (6.4-8.2)
[2023-07-20 15:27] VITALS: BP 155/77
--- NOTE | 2023-07-20 18:39 | NUR ---
DAYSHIFT SUMMARY No acute changes to patient status, plan to continue to diuresis, patient continues to require 4lpm O2. Patient reports scrotal edema is improving, but would not allow RN to assess. Patient sleeping t/o the day, Vitals stable. Will continue plan of care.
[2023-07-20 19:15] VITALS: BP 154/84
[2023-07-21 02:33] VITALS: BP 173/84
--- NOTE | 2023-07-21 04:13 | NUR ---
SHIFT SUMMARY PATIENT HAD NO ACUTE CHANGES. AXOX 4 AND INDEPENDENT IN ROOM. PIV REMAINS INTACT. ELECTRICAL DEVELOPMENT ENGINEER NSR 85. ON 4L O2 NC. DENIES CHEST PAIN, SOB, AND N/V. REPORTED GENERAL PAIN X ONE AND TRAMADOL 50 MG GIVEN PER EMAR. VSS/AFEBRILE. SLEPT MOST OF THE SHIFT. CALL LIGHT IN REACH. BED IN LOWEST POSITION. WILL CONTINUE TO MONITOR UNTIL DAY SHIFT NURSE ASSUMES CARE.
--- NOTE | 2023-07-21 05:37 | NUR ---
REFUSING LABS UNTIL AFTER BREAKFAST PER CARBURETOR MECHANIC.
[2023-07-21 07:16] VITALS: BP 170/85
[2023-07-21] MEDS ORDERED: Furosemide 10 MG/ML 4ML Vial IV SCH (09:00)
--- NOTE | 2023-07-21 09:26 | NUR ---
PT IN WORKING WITH PATIENT, PATIENT REFUSED TO AMBULATE FOR PT DUE TO HIM HAVING TO HAVE A BM LATER, PATIENT DIFFUCULT AND RELUCTANT TO ANY INTERVENTIONS OR CARE FROM STAFF. PATIENT STATED "YA SOME OF THESE DUMB NURSE REALLY DONT LIKE ME, I THINK ITS FUNNY", PATIENT DEPICTING ALL ASPECTS OF CARE MEDICATIONS/PAIN MEDS/ BM/INTAKE AND OUT PUT, REGARDLESS OF WHAT THE DOCTOR ORDERS. PATIENT INAPPROPRIATE FOR PT DUE TO REFUSING TO WORK DURING THE TIME PT IS AVAILABLE. PATIENT VERY DEFENSIVE WHEN ASK TO PARTICIPATE, PATIENT STATING "OH WELL I GUESS IF YOUR GOING TO FORCE ME TO DO IT" PATIENT EDUCATED BY THIS RN SOFÍA AND PT THAT HE CAN REFUSE PER HIS PATIENT RIGHT AND NO ONE IS FORCING HIM. PATIENT FIXATED ON BEING FORCE TO AMBULATE TO THE BATHROOM, REPORTED TO INVESTMENT ACCOUNTANT, PATIENT IN BATHROOM NOW, BATHROOM CALL LIGHT WITH IN REACH
[2023-07-21 11:11] LABS: BASOPHILS ABSOLUTE AUTO 0.06 K/mm3 (0.00-0.23); BASOPHILS PERCENT AUTO 1 % (0-2); EOSINOPHILS ABSOLUTE AUTO 0.16 K/mm3 (0.00-0.68); EOSINOPHILS PERCENT AUTO 3 % (0-6); Hematocrit 33.4 % (37.0-53.0); IMMATURE GRAN ABSOLUTE AUTO 0.02 K/mm3 (0.00-0.10); IMMATURE GRAN PERCENT AUTO 0 % (0-1); LYMPHOCYTES ABSOLUTE AUTO 0.84 K/mm3 (0.84-5.20); LYMPHOCYTES PERCENT AUTO 13 % (21-46); MONOCYTES ABSOLUTE AUTO 0.63 K/mm3 (0.16-1.47); MONOCYTES PERCENT AUTO 10 % (4-13); Mean Corpuscular HGB 29.2 pg (26.0-34.0); Mean Corpuscular HGB Conc 32.9 g/dL (31.5-36.5); Mean Corpuscular Volume 89 fL (80-100); NEUTROPHILS ABSOLUTE AUTO 4.75 K/mm3 (1.96-9.15); NEUTROPHILS PERCENT AUTO 74 % (41-73); RDW Coefficient Variation 13.3 % (11.7-14.2); RDW Standard Deviation 43.5 fL (35.1-46.3); Red Blood Cell Count 3.77 M/mm3 (4.30-5.90); White Blood Cell Count 6.46 K/mm3 (4.00-11.30)
[2023-07-21 11:21] LABS: Albumin/Globulin Ratio 0.2 (0.8-1.8); Bilirubin, Total 0.2 mg/dL (0.1-1.0); Calcium, Blood 8.6 mg/dL (8.5-10.1); Globulin, Blood 4.1 g/dL (2.2-4.0); Potassium, Blood 3.8 mmol/L (3.5-5.5); Total Protein, Blood 5.1 g/dL (6.4-8.2)
[2023-07-21 11:41] LABS: Platelet Count 209 K/mm3 (150-400)
[2023-07-21 14:58] VITALS: BP 153/79
[2023-07-21 19:06] VITALS: BP 139/78
[2023-07-21] MEDS ORDERED: Potassium Chloride 10 Meq Tablet SA PO ONE (21:55)
--- NOTE | 2023-07-21 22:03 | NUR ---
AUTOMOTIVE TIRE TECHNICIAN REPORTS ST DEPRESSION. PATIENT NSR BBB @ 86 AT SHIFT CHANGE. HOPSPITALIST GRZEGORZ GARCIA REPORTS TO GIVEN PO K+ 20 MEQ X ONE. LABS REVIEWED. REPORTS TO CHECK LABS IN AM. AUTOMOTIVE TIRE TECHNICIAN MADDI NOTIFIED. NO EVENTS SINCE. PATIENT RESTING. WCTM.
--- NOTE | 2023-07-22 04:04 | NUR ---
SHIFT SUMMARY PATIENT AXOX 4 AND INDEPENDENT IN ROOM. LIAISON INSPECTION LABORATORY ASSISTANT REPORTED ST DEPRESSION AND HOSPITALIST GRZEGORZ BOOK SALESMAN REPORTS TO GIVE K+ 20 MEQ X ONE AND REVIEWED LABS. CHECK LABS IN AM. DENIES CHEST PAIN, SOB, AND N/V. ON 4L O2 NC. USES URINAL AT BEDSIDE. VSS/AFEBRILE. LIAISON INSPECTION LABORATORY ASSISTANT NSR @86 BBB AT START OF SHIFT. SLEPT MOST OF SHIFT. CALL LIGHT IN REACH. BED IN LOWEST POSITION. WILL CONTINUE TO MONITOR UNTIL DAY SHIFT NURSE ASSUMES CARE.
[2023-07-22 04:46] VITALS: BP 144/77
[2023-07-22 07:25] VITALS: BP 157/71
[2023-07-22 09:33] LABS: BASOPHILS ABSOLUTE AUTO 0.06 K/mm3 (0.00-0.23); BASOPHILS PERCENT AUTO 1 % (0-2); EOSINOPHILS ABSOLUTE AUTO 0.18 K/mm3 (0.00-0.68); EOSINOPHILS PERCENT AUTO 3 % (0-6); Hematocrit 33.2 % (37.0-53.0); Hemoglobin 10.9 g/dL (13.5-17.5); IMMATURE GRAN ABSOLUTE AUTO 0.01 K/mm3 (0.00-0.10); IMMATURE GRAN PERCENT AUTO 0 % (0-1); LYMPHOCYTES ABSOLUTE AUTO 0.86 K/mm3 (0.84-5.20); LYMPHOCYTES PERCENT AUTO 14 % (21-46); MONOCYTES ABSOLUTE AUTO 0.54 K/mm3 (0.16-1.47); MONOCYTES PERCENT AUTO 9 % (4-13); Mean Corpuscular HGB 29.1 pg (26.0-34.0); Mean Corpuscular HGB Conc 32.8 g/dL (31.5-36.5); Mean Corpuscular Volume 89 fL (80-100); Mean Platelet Volume 9.4 fL (9.1-12.4); NEUTROPHILS PERCENT AUTO 73 % (41-73); Platelet Count 206 K/mm3 (150-400); RDW Coefficient Variation 13.2 % (11.7-14.2); RDW Standard Deviation 43.3 fL (35.1-46.3); Red Blood Cell Count 3.74 M/mm3 (4.30-5.90); White Blood Cell Count 6.15 K/mm3 (4.00-11.30)
[2023-07-22 10:12] LABS: Alanine Aminotransfer (ALT/SGP <6 U/L (12-78); Albumin/Globulin Ratio 0.2 (0.8-1.8); Alk Phos 87 U/L (50-136); Anion Gap 5 mmol/L (3-11); Aspartate Aminotrans (AST/SGOT 9 U/L (12-37); Bilirubin, Total 0.2 mg/dL (0.1-1.0); Blood Urea Nitrogen 21 mg/dL (8-24); Bun/Creatinine Ratio 21.6 (12.0-20.0); CO2, Blood 41 mmol/L (21-32); Calcium, Blood 8.4 mg/dL (8.5-10.1); Chloride, Blood 96 mmol/L (98-108); Creatinine, Blood 0.97 mg/dL (0.60-1.20); Globulin, Blood 4.3 g/dL (2.2-4.0); Glomerular Filtration Rate 91 (60-); Glucose, Blood 146 mg/dL (70-99); Potassium, Blood 3.7 mmol/L (3.5-5.5); Sodium, Blood 138 mmol/L (136-145); Total Protein, Blood 5.3 g/dL (6.4-8.2)
[2023-07-22 15:05] VITALS: BP 137/68
--- NOTE | 2023-07-22 17:49 | NUR ---
NO CHANGES, PATIENT MORE COOPERATIVE TO CARE TODAY, PATIENT CLEARLY MAKES NEEDS KNOWN, REFUSES TO CALL FOR HELP WHEN AMBULATING TO THE BATHROOM, PATIENT REPORTS HAVING A BM TODAY, MEDICATED WITH TRAMADOL PRESCRIBED, CALL LIGHT WITH IN REACH, WILL RELAY TO PM RN
[2023-07-22 21:47] VITALS: BP 147/73
[2023-07-23 04:06] VITALS: BP 148/76
--- NOTE | 2023-07-23 06:36 | NUR ---
shift summary: pt is a/o x 4, ind in room. pt had complaints of pain to lower back, managed with ultram. pt had no other complaints. pt did request am labs not to be drawn until after breakfast. posted a note outside room to notify lab. pt on 4 lpm via nc which is baseline o2 needs. edema to ble continues.
[2023-07-23 07:40] VITALS: BP 154/135
[2023-07-23] MEDS ORDERED: Furosemide 10 MG/ML 4ML Vial IV SCH (09:00)
[2023-07-23 09:23] LABS: BASOPHILS ABSOLUTE AUTO 0.04 K/mm3 (0.00-0.23); BASOPHILS PERCENT AUTO 1 % (0-2); EOSINOPHILS PERCENT AUTO 3 % (0-6); Hematocrit 35.5 % (37.0-53.0); Hemoglobin 11.6 g/dL (13.5-17.5); IMMATURE GRAN ABSOLUTE AUTO 0.02 K/mm3 (0.00-0.10); IMMATURE GRAN PERCENT AUTO 0 % (0-1); LYMPHOCYTES ABSOLUTE AUTO 0.98 K/mm3 (0.84-5.20); LYMPHOCYTES PERCENT AUTO 15 % (21-46); MONOCYTES ABSOLUTE AUTO 0.59 K/mm3 (0.16-1.47); MONOCYTES PERCENT AUTO 9 % (4-13); Mean Corpuscular HGB 29.2 pg (26.0-34.0); Mean Corpuscular HGB Conc 32.7 g/dL (31.5-36.5); Mean Corpuscular Volume 89 fL (80-100); Mean Platelet Volume 9.6 fL (9.1-12.4); NEUTROPHILS ABSOLUTE AUTO 4.71 K/mm3 (1.96-9.15); NEUTROPHILS PERCENT AUTO 72 % (41-73); Platelet Count 227 K/mm3 (150-400); RDW Coefficient Variation 13.3 % (11.7-14.2); RDW Standard Deviation 43.8 fL (35.1-46.3); Red Blood Cell Count 3.97 M/mm3 (4.30-5.90); White Blood Cell Count 6.54 K/mm3 (4.00-11.30)
[2023-07-23 09:39] LABS: Albumin, Blood 1.1 g/dL (3.4-5.0); Albumin/Globulin Ratio 0.2 (0.8-1.8); Bilirubin, Total 0.2 mg/dL (0.1-1.0); Bun/Creatinine Ratio 21.9 (12.0-20.0); Calcium, Blood 8.4 mg/dL (8.5-10.1); Creatinine, Blood 0.96 mg/dL (0.60-1.20); Globulin, Blood 4.4 g/dL (2.2-4.0); Potassium, Blood 3.7 mmol/L (3.5-5.5); Total Protein, Blood 5.5 g/dL (6.4-8.2)
--- NOTE | 2023-07-23 09:59 | NUR ---
NOTE: PT'S WOULD NOT COOPERATE AND LAY ON BACK BUT INSTEAD LAID ON SIDE FOR BLOOD PRESSURE. LIVESTOCK FEEDER INSTRUCTED HIM TO LAY ON HIS BACK FOR AN ACCURATE READING BUT HE REFUSED. PT PROCEEDED TO REMOVE BP CUFF AND THREW IT. WILL ATTEMPT TO RECHECK BLOOD PRESSURE.
--- NOTE | 2023-07-23 11:35 | NUR ---
MAD Consult received. Spoke with nursing staff. Patient had asked not to be disturbed until after breakfast. At time of visit, patient was sleeping. RN to call Threat Assessment Team when patient awake and if rude behavior continues.
--- NOTE | 2023-07-23 13:14 | NUR ---
NOTE: INFORMED BY NURSE, JAYLEEN, THAT THE PT WAS RECORDING USING HIS PERSONAL CELLPHONE. THIS NURSE DID SEE THE PT HOLDING UP HIS PHONE, APPEARING TO RECORD ON HIS PHONE. THIS NURSE WENT INTO THE ROOM AND EXPLAINED TO THE PT THAT HE IS NOT ALLOWED TO RECORD IN THE HOSPITAL SETTING BECAUSE THIS IS NOT A PUBLIC SPACE. THE PT RELUCTANTLY ALLOWED THIS NURSE TO CONFIRM THAT THERE IS NO VIDEO ON HIS PHONE. HE DID SAY THAT HE COULD HAVE "SAVED IT TO AN EXTERNAL HARD DRIVE" BUT THIS NURSE WAS NOT ABLE TO ACCESS THAT DATABASE. THE PT WAS INFORMED ABOUT HIPAA AND HOW RECORDING ANYTHING IN THE HOSPITAL IS A HIPAA VIOLATION. THE CHARGE NURSE WAS INFORMED AND SHE ALSO SPOKE WITH PT. THE CHARGE NURSE INFORMED THIS NURSE THAT THE CLINICAL COORDINATOR, PAYAL, WERE ALSO INFORMED.
--- NOTE | 2023-07-23 13:15 | NUR ---
PATIENT BEHAVIOR THIS CERTIFIED INDUSTRIAL HYGIENIST WENT INTO PT'S ROOM FOR ROUTINE VITALS AND ASKED PT TO VERIFY . PT WAS RELUCTANT TO FOLLOW WHAT WAS ASKED OF HIM. HE THREW OUT HIS ARM AND SAID, "HERE ITS ON HERE, READ THIS," TALKING ABOUT HIS WRISTBAND."WHAT, CAN'T YOU READ?" HE THEN PROCEEDED TO NOT FOLLOW DIRECTION WHILE TAKING HIS BLOOD PRESSURE. THIS CERTIFIED INDUSTRIAL HYGIENIST ASKED HIM TO LAY FLAT ON HIS BACK AND HE DECLINED TO DO SO RESULTING IN AN INCORRECT BP READING. I WAS FINISHING UP GETTING THE LAST OF INFORMATION NEEDED TO SEND OFF HIS VITALS, HE RIPPED OFF THE BLOOD PRESSURE CUFF AND THREW IT AWAY FROM HIS BODY AND THEN DID THE SAME THING WITH THE PULSE OX. I LET HIM KNOW THAT I WASNT FINISHED WITH HIS VITALS AND HE STATED,"YES YOU ARE". I TOLD HIM THAT THIS IS A [facility] AND THAT HE NEEDED TO BE RESPECTUFUL SO I COULD DO MY JOB. HE SAID, "YOUR JOB IS TO TAKE CARE OF ME" AND I SAID YES YOU ARE CORRECT AND I CANT DO THAT RIGHT IF YOU WONT COOPERATE WITH WHAT I NEED YOU TO DO. PT THEN PROCEDED TO RAISE HIS VOICE AT STAFF AND TOLD ONE OF THE DOCTORS THAT I WAS A "NEIL, A PRIVELIGED WHITE WOMEN THAT HAS TO MUCH RESPONIBILITY."
--- NOTE | 2023-07-23 13:18 | NUR ---
THIS RN NOTICED CALL LIGHT BLINKING OUTSIDE DOOR. ASKED PT WHAT COULD I DO FOR HIM. PT STATED HE WANTED COFFEE. THIS RN BROUGHT COFFEE TO PT. PT OBSERVED HOLDING HIS PHONE UP WITH CAMERA FACING TOWARDS THIS RN. PT THEN PANNED TO CLOCK AND STATED THE TIME. THIS RN ASKED IF HE WAS RECORDING ME. I TOLD PT THAT HE IS NOT ALLOWED TO RECORD ME. HE STATED "WELL ITS TOO LATE NOW." THIS RN NOTIFIED CHARGED RN.
--- NOTE | 2023-07-23 13:37 | NUR ---
Maladaptive and Disruptive/Spiritual Care Consult received and processed. EMR reviewed, staff interviews conducted and then patient was visited by this filing writer. I discussed with the patient the complaints and incidents that were reported to me. Patient stated that he felt the indictments made against him were "blown out of proportion," but he admits to being in pain and uncomfortable and clearly not acting like his "usual nice self." He says that he is typically a nice thanh and that he gets along well with the staff and nurses at [facility] where he came from. He states that he will work at being more kind and to make the most out of his time in the hospital. I then conduct a spiritual care visit by conducting a life review, exploring his spiritual beliefs (He states that he has Yarsani belief system) and support system and looking at his coping skills and resources. I provided therapeutic listening, gentle industrial relations counselor and prayer. Patient responded well and showed signs greater peace. I will continue to reamin available to the clinical staff and the patient as I am hoping for the patient to be far more cooperative.
[2023-07-23] MEDS ORDERED: Furosemide 10 MG/ML 4ML Vial IV ONE (16:00)
--- NOTE | 2023-07-23 17:25 | NUR ---
SHIFT SUMMARY PT AOX4, INDEPENDENT IN THE ROOM. USES THE URINAL AT THE BS. MEDICATED FOR PAIN PER THE EMAR. SEE OTHER NOTES ABOUT PT'S BEHAVIOR THIS SHIFT. HE HAS BEE SOMEWHAT MORE COOPERATIVE THIS EVENING. CALL LIGHT WITHIN REACH, BED LOCKED AND IN THE LOWEST POSITION. WILL REPORT TO ONCOMING NURSE.
[2023-07-23 18:08] VITALS: BP 146/95
[2023-07-23 19:23] VITALS: BP 164/70
[2023-07-24 02:28] VITALS: BP 154/73
--- NOTE | 2023-07-24 05:06 | NUR ---
SHIFT SUMMARY PT SLEPT SOUNDLY THROUGHOUT NIGHT. ROUNDED Q2HRS DURING SHIFT. PT HAD NO COMPLAINTS OR COMPLICATIONS. CONTINUING TO MONITOR.
[2023-07-24] MEDS ORDERED: Furosemide 40 MG Tab PO SCH (09:00)
[2023-07-24 09:49] VITALS: BP 131/67
[2023-07-24 15:46] VITALS: BP 141/71
--- NOTE | 2023-07-24 17:49 | NUR ---
SUMMARY- PT AAOX4 THIS SHIFT. NO ACUTE EVENTS. NO BEHAVIOR ISSUES. PT SBA IN ROOM. PT IS ON 4.5L NC. PT HAS GOOD APPETITE.
[2023-07-24] MEDS ORDERED: Furosemide 10 MG/ML 4ML Vial IV ONE (19:00)
[2023-07-24 20:11] VITALS: BP 144/77
--- NOTE | 2023-07-25 05:23 | NUR ---
SUMMARY: PT A/OX4, CALLS APPROPRIATELY TO SPECIFY NEEDS AND WAS COOPERATIVE W/CARE THIS SHIFT. HE PREFERS TO BE LEFT UNDISTURBED AND SLEPT MAJORITY OF NOCTE. PT INTERMITTENTLY IS DEFENSIVE AND WITHDRAWN AND REFUSES SOME ASSESMENTS/CARE. HE USED URINAL ADLIB AND REPOSITIONS SELF INDEPENDENTLY. 2+ BLE EDEMA PERSISTS AND PT REPORTS SCROTAL EDEMA IS IMPROVING W/DIURESIS. PT C/O GENERALIZED PAIN, TRAMADOL RECIEVED PRN. NO ACUTE CHANGES, BP SLIGHTLY ELEVATED THIS AM BUT POSSIBLY IS PAIN INDUCED, WILL REEVALUATE. ALL OTHER VSS. HE'S NSR W/BBB ON TELE AT 70'S BPM. WCTM AND REPORT TO DAY RN.
[2023-07-25 05:28] VITALS: BP 172/83
[2023-07-25 08:10] VITALS: BP 134/69
[2023-07-25] MEDS ORDERED: Furosemide 10 MG/ML 4ML Vial IV SCH (09:00)
[2023-07-25 09:19] LABS: BASOPHILS ABSOLUTE AUTO 0.05 K/mm3 (0.00-0.23); BASOPHILS PERCENT AUTO 1 % (0-2); EOSINOPHILS ABSOLUTE AUTO 0.19 K/mm3 (0.00-0.68); EOSINOPHILS PERCENT AUTO 3 % (0-6); Hematocrit 34.2 % (37.0-53.0); Hemoglobin 11.3 g/dL (13.5-17.5); IMMATURE GRAN ABSOLUTE AUTO 0.01 K/mm3 (0.00-0.10); IMMATURE GRAN PERCENT AUTO 0 % (0-1); LYMPHOCYTES ABSOLUTE AUTO 0.88 K/mm3 (0.84-5.20); LYMPHOCYTES PERCENT AUTO 13 % (21-46); MONOCYTES ABSOLUTE AUTO 0.58 K/mm3 (0.16-1.47); MONOCYTES PERCENT AUTO 9 % (4-13); Mean Corpuscular HGB 29.3 pg (26.0-34.0); Mean Corpuscular Volume 89 fL (80-100); Mean Platelet Volume 9.8 fL (9.1-12.4); NEUTROPHILS ABSOLUTE AUTO 4.89 K/mm3 (1.96-9.15); NEUTROPHILS PERCENT AUTO 74 % (41-73); Platelet Count 227 K/mm3 (150-400); RDW Coefficient Variation 13.4 % (11.7-14.2); RDW Standard Deviation 43.3 fL (35.1-46.3); Red Blood Cell Count 3.86 M/mm3 (4.30-5.90)
[2023-07-25 09:40] LABS: Bun/Creatinine Ratio 23.2 (12.0-20.0); Calcium, Blood 8.3 mg/dL (8.5-10.1); Creatinine, Blood 0.95 mg/dL (0.60-1.20); Potassium, Blood 3.6 mmol/L (3.5-5.5)
--- NOTE | 2023-07-25 16:42 | NUR ---
PT IS ALERT AND ORIENTED X4. REQUESTING TO BE LEFT ALONE. COOPERATIVE FOR MOST OF MY ASSESSMENT. PT REPORTS FEELING VERY FATIGED TODAY. DR. FLOWERS AWARE. PT IS ABLE TO MAKE NEED KNOWN. INDEPENDENT IN THE ROOM. PLAN IS TO CONTINUE DIURESSING.
--- NOTE | 2023-07-25 17:25 | NUR ---
"Spiritual Care | Urgent Nurse Request This manager surgical was notified at approx. 1648 that the Pt. had just been notified that his mother in [place] had suffered a massive stroke and is not expected to recover. Family in [place] requested that spiritual care at this hospital reach out to the Pt. This manager surgical spoke with a family member of the Pt. on the phone, who offered context. When attempting to facilitate a life review with the Pt. the Pt. displayed evidence of shock and was guarded about sharing his story. Pt. did allow this manager surgical to pray with him. Some pastoral care was given and matetrs of sandy and belief are considered. After some continued theraputic listening Pt. displayed evidence of trust and hope. Pt. also request to have some time alone. This manager surgical gave a report to nurse Cardona, and will report to Pts. primary manager surgical via email."
[2023-07-25 19:13] VITALS: BP 136/74
[2023-07-26 02:37] VITALS: BP 151/81
--- NOTE | 2023-07-26 05:57 | NUR ---
SHIFT SUMMARY: Pt is admitted for volume overload and is a full code. Is alert and able to make needs known. In on a MAD contract but no noted issues this shift. ADLs have been independent. Denies pain or discomfort when asked. Telly reports sinus at 90.
[2023-07-26 07:45] VITALS: BP 155/85
[2023-07-26 09:18] LABS: BASOPHILS ABSOLUTE AUTO 0.06 K/mm3 (0.00-0.23); BASOPHILS PERCENT AUTO 1 % (0-2); EOSINOPHILS ABSOLUTE AUTO 0.24 K/mm3 (0.00-0.68); EOSINOPHILS PERCENT AUTO 4 % (0-6); Hematocrit 32.6 % (37.0-53.0); Hemoglobin 10.7 g/dL (13.5-17.5); IMMATURE GRAN ABSOLUTE AUTO 0.01 K/mm3 (0.00-0.10); IMMATURE GRAN PERCENT AUTO 0 % (0-1); LYMPHOCYTES ABSOLUTE AUTO 0.99 K/mm3 (0.84-5.20); LYMPHOCYTES PERCENT AUTO 17 % (21-46); MONOCYTES PERCENT AUTO 10 % (4-13); Mean Corpuscular HGB 29.6 pg (26.0-34.0); Mean Corpuscular HGB Conc 32.8 g/dL (31.5-36.5); Mean Corpuscular Volume 90 fL (80-100); Mean Platelet Volume 9.4 fL (9.1-12.4); NEUTROPHILS ABSOLUTE AUTO 4.09 K/mm3 (1.96-9.15); NEUTROPHILS PERCENT AUTO 68 % (41-73); Platelet Count 209 K/mm3 (150-400); RDW Coefficient Variation 13.2 % (11.7-14.2); RDW Standard Deviation 43.8 fL (35.1-46.3); Red Blood Cell Count 3.62 M/mm3 (4.30-5.90); White Blood Cell Count 5.99 K/mm3 (4.00-11.30)
[2023-07-26 09:41] LABS: Bun/Creatinine Ratio 21.7 (12.0-20.0); Calcium, Blood 8.2 mg/dL (8.5-10.1); Creatinine, Blood 1.06 mg/dL (0.60-1.20); Potassium, Blood 3.7 mmol/L (3.5-5.5)
[2023-07-26 10:36] VITALS: BP 161/70
[2023-07-26 14:20] VITALS: BP 149/65
[2023-07-26 17:52] VITALS: BP 159/94
--- NOTE | 2023-07-26 18:18 | NUR ---
PATIENT IS ALERT AND ORIENTED. HE WAS COOPERATIVE WITH CARE TODAY. DID NOT ALLOW STAFF TO ASSESS HIS SCROTAL SWELLING. PATIENT USES THE URINAL INDEPENDENTLY. NO NEW CONCERNS. WILL CONTINUE TO MONITOR
[2023-07-26 20:06] VITALS: BP 148/67
[2023-07-26] MEDS ORDERED: Enoxaparin 40 MG/0.4 ML SYR SC SCH (21:00)
[2023-07-27 04:59] VITALS: BP 162/92
--- NOTE | 2023-07-27 06:45 | NUR ---
SHIFT SUMMARY PT REFUSED LOVENOX INJ, HAS BEEN WALKING IN ROOM, SLEPT MAJORITY OF SHIFT. USING URINAL IN BED. PT'S MOTHER PASSED THIS AM, GRIEVING. CALL LIGHT IN REACH.
[2023-07-27 07:23] VITALS: BP 146/76
--- NOTE | 2023-07-27 10:05 | NUR ---
07/27/23 MORNING NOTE. PATIENT IS IN A IRRITABLE MOOD. UP SET THAT TO MUCH NOISE IS PRESENT AND TO MANY PEOPLE COME INTO HIS ROOM. DID EXAM AND MEDS AND BREAKFAST. TOLD HIM HE CAN REST UNTIL LUNCH. REFUSES TO HAVE BATHING FOR HIM.
--- NOTE | 2023-07-27 14:22 | NUR ---
SITING UP IN CHAIR PLAYING ON PHONE GAME. DENIES TO NEED ANYTHING AT THIS TIME OTHER THAN QUIETNESS. COMPLAINT THAT IT IS STILL TO LOOUD EVEN WITH THE DOOR CLOSED. REMINDED TO USE CALL LIGHT IF SHOULD NEED ANYTHING.
[2023-07-27 16:52] VITALS: BP 149/73
--- NOTE | 2023-07-27 16:54 | NUR ---
SHIFT SUMMARY-DAY A&OX4. REFUSED SHOWER. DOES NOT WANT ANYONE IN THE ROOM. HE WANTS TO BE LEFT ALONE TO SLEEP. HIS MOTHER EARLY THIS MORNING. SCROTAL AREA THE SIZE OF A SOFT BALL. HE STATES IT WAS BIGGER THAN A GRAPE FRUIT. HE STATES THE SWELLING HAS GONE DOWN A LOT. EDEMA TO LEGS AND FEET WITH DRY FLAKINESS PRESENT. PLAN FOR DISCHARGE HOME TOMORROW PER DR. MAX.
[2023-07-27 19:30] VITALS: BP 128/66
[2023-07-28] MEDS ORDERED: Buspirone HCl15 MG PO (03:41)
[2023-07-28] MEDS ORDERED: Cyclobenzaprine5 MG PO (03:43)
[2023-07-28 05:12] VITALS: BP 147/85
[2023-07-28 07:45] VITALS: BP 121/58
[2023-07-28 14:46] LABS: Albumin/Globulin Ratio 0.3 (0.8-1.8); Bilirubin, Total 0.2 mg/dL (0.1-1.0); Bun/Creatinine Ratio 30.1 (12.0-20.0); Creatinine, Blood 1.03 mg/dL (0.60-1.20); Globulin, Blood 3.8 g/dL (2.2-4.0); Potassium, Blood 3.7 mmol/L (3.5-5.5); Total Protein, Blood 4.8 g/dL (6.4-8.2)
--- NOTE | 2023-07-28 16:34 | NUR ---
SHIFT SUMMARY: NO ACUTE EVENTS. TELEMETRY DISCONTINUED. PT IRRITABLE EVEN THOUGH STAFF TRIED TO ALLOW HIM TO SLEEP, BUT NO OUTBURSTS NOTED. ON O2 @ 4 L/MIN NC (BASELINE). PAIN ASSESSED, STATED HE DID NOT REQUIRE PAIN MEDS AT TIME OF ASSESSMENT. EDEMA HAS GREATLY IMPROVED PER PATIENT, STATED HE FEELS "SHANK MAKER." DECLINED SC LOVENOX. PLAN IS LIKELY D/C TOMORROW.
[2023-07-28 19:36] VITALS: BP 132/75
[2023-07-29 03:19] VITALS: BP 141/96
--- NOTE | 2023-07-29 05:48 | NUR ---
END OF SHIFT SUMMARY PT A&OX4, SITTING IN CHAIR FOR COMFORT. ON 4L VIA NC, AT BASELINE. DENIES SOB. BLE EDEMA IMPROVING PER PT. SKIN EXTREMELY FLAKY AND DRY, APPLIED MOISTURIZER TO BLE, PT THANKFUL AND AGREEABLE TO HAVING SKIN CARE IN AM WELL. ABD HERNIA UNCHANGED. PT REMAINED PLEASANT AND AGREEABLE WITH CARE. NO ACUTE CHANGES DURING SHIFT.
[2023-07-29 08:07] VITALS: BP 155/80
[2023-07-29 09:16] LABS: BASOPHILS ABSOLUTE AUTO 0.07 K/mm3 (0.00-0.23); BASOPHILS PERCENT AUTO 1 % (0-2); EOSINOPHILS ABSOLUTE AUTO 0.31 K/mm3 (0.00-0.68); EOSINOPHILS PERCENT AUTO 4 % (0-6); Hematocrit 33.6 % (37.0-53.0); Hemoglobin 10.9 g/dL (13.5-17.5); IMMATURE GRAN ABSOLUTE AUTO 0.02 K/mm3 (0.00-0.10); IMMATURE GRAN PERCENT AUTO 0 % (0-1); LYMPHOCYTES ABSOLUTE AUTO 1.08 K/mm3 (0.84-5.20); LYMPHOCYTES PERCENT AUTO 15 % (21-46); MONOCYTES ABSOLUTE AUTO 0.55 K/mm3 (0.16-1.47); MONOCYTES PERCENT AUTO 8 % (4-13); Mean Corpuscular HGB 29.4 pg (26.0-34.0); Mean Corpuscular HGB Conc 32.4 g/dL (31.5-36.5); Mean Corpuscular Volume 91 fL (80-100); Mean Platelet Volume 9.4 fL (9.1-12.4); NEUTROPHILS ABSOLUTE AUTO 5.21 K/mm3 (1.96-9.15); NEUTROPHILS PERCENT AUTO 72 % (41-73); Platelet Count 247 K/mm3 (150-400); RDW Coefficient Variation 13.3 % (11.7-14.2); RDW Standard Deviation 44.3 fL (35.1-46.3); Red Blood Cell Count 3.71 M/mm3 (4.30-5.90); White Blood Cell Count 7.24 K/mm3 (4.00-11.30)
[2023-07-29 09:39] LABS: Albumin, Blood 1.1 g/dL (3.4-5.0); Albumin/Globulin Ratio 0.2 (0.8-1.8); Bilirubin, Total 0.1 mg/dL (0.1-1.0); Bun/Creatinine Ratio 29.4 (12.0-20.0); Calcium, Blood 8.2 mg/dL (8.5-10.1); Creatinine, Blood 0.99 mg/dL (0.60-1.20); Globulin, Blood 4.5 g/dL (2.2-4.0); Total Protein, Blood 5.6 g/dL (6.4-8.2)
[2023-07-29] MEDS ORDERED: POTCHL20ER PO (12:05)
[2023-07-29] MEDS ORDERED: TOPROL XL25 MG PO (12:06)
--- NOTE | 2023-07-29 13:59 | NUR ---
PATIENT WAS TO BE DISCHARGED TODAY, THOUGHT HE WOULD BE GOING BACK TO [facility]. LOREN BRADLY CAME TO SEE PT JUST BEFORE LUNCH AND INFORMED HIM THAT HE WAS NOT ACCEPTED BACK TO [facility] AND WOULD BE D[facility] (HE IS CURRENTLY UNDOMICILED). HE THEN HAD A NOTICEABLE CHANGE IN HIS DEMEANOR; BECAME WITHDRAWN, TOLD THIS AUTHOR THAT HE WOULD NOT BE ABLE TO PARTICIPATE IN THE DUTIES REQUIRED OF HIM [facility], AND THAT HE WOULD JUST END UP ON THE STREETS. HOME O2 EVAL ORDERED SO HIS OXYGEN WOULD BE DELIVERED ([facility] HAD PICKED UP HIS O2 CONCENTRATOR WHILE HE WAS AT [facility]). DURING EVAL, HE WAS ONLY ABLE TO STAND FOR SECONDS BEFORE STATING HE "HAD TO SIT DOWN." HE HAD BEEN AMBULATING INDEPENDENTLY TO PRIOR TO THE UNEXPECTED CHANGE IN HIS D/C DISPOSITION. AT THIS TIME, HE IS IN BED WITH HIS ENTIRE BODY COVERED IN BLANKETS. HE TEARFULLY REQUESTED TYLENOL FOR A HEADACHE AND THIS AUTHOR OBTAINED ORDER FROM DR. DEJESUS. WILL CONTINUE TO MONITOR.
[2023-07-29] MEDS ORDERED: Acetaminophen 325 MG TABLET PO PRN (14:00)
--- NOTE | 2023-07-29 17:48 | NUR ---
SHIFT SUMMARY: NO ACUTE EVENTS. ON O2 @ 4 L/MIN NC WHICH IS HIS BASELINE. DEMEANOR IS SUBDUED, IS C/O "SEVERE" WEAKNESS. C/O PAIN IN SCROTUM, LOW BACK, BLE, AND HEADACHE; MEDICATED PER EMAR. USING URINAL AT THE BEDSIDE INDEPENDENTLY. IS REFUSING DVT PROPHYLAXIS. HAS PT/OT RE-EVALUATIONS ORDERED FOR TOMORROW.
[2023-07-29 19:21] VITALS: BP 158/73
[2023-07-30 02:23] VITALS: BP 132/75
[2023-07-30 07:40] VITALS: BP 158/81
--- NOTE | 2023-07-30 07:54 | NUR ---
SHIFT SUMMARY PT IS A&OX4, IRRITABLE. VSS ON 4L NC. C/O PAIN IN SCROTUM AND BLE, MEDICATED WITH PRN TRAMADOL. NOOB THIS SHIFT BUT USING URINAL INDEPENDENTLY AT BEDSIDE. VOIDING LARGE AMOUNTS OF CLEAR YELLOW URINE. NO BM THIS SHIFT. TOLERATING A REGULAR DIET. BED IN LOWEST POSITION, CALL LIGHT WITHIN REACH.
[2023-07-30 09:17] LABS: BASOPHILS ABSOLUTE AUTO 0.05 K/mm3 (0.00-0.23); BASOPHILS PERCENT AUTO 1 % (0-2); EOSINOPHILS ABSOLUTE AUTO 0.34 K/mm3 (0.00-0.68); EOSINOPHILS PERCENT AUTO 5 % (0-6); Hematocrit 32.9 % (37.0-53.0); Hemoglobin 10.8 g/dL (13.5-17.5); IMMATURE GRAN ABSOLUTE AUTO 0.01 K/mm3 (0.00-0.10); IMMATURE GRAN PERCENT AUTO 0 % (0-1); LYMPHOCYTES ABSOLUTE AUTO 0.93 K/mm3 (0.84-5.20); LYMPHOCYTES PERCENT AUTO 14 % (21-46); MONOCYTES ABSOLUTE AUTO 0.54 K/mm3 (0.16-1.47); MONOCYTES PERCENT AUTO 8 % (4-13); Mean Corpuscular HGB 29.6 pg (26.0-34.0); Mean Corpuscular HGB Conc 32.8 g/dL (31.5-36.5); Mean Corpuscular Volume 90 fL (80-100); Mean Platelet Volume 9.3 fL (9.1-12.4); NEUTROPHILS ABSOLUTE AUTO 4.65 K/mm3 (1.96-9.15); NEUTROPHILS PERCENT AUTO 71 % (41-73); Platelet Count 258 K/mm3 (150-400); RDW Coefficient Variation 13.2 % (11.7-14.2); RDW Standard Deviation 43.9 fL (35.1-46.3); Red Blood Cell Count 3.65 M/mm3 (4.30-5.90); White Blood Cell Count 6.52 K/mm3 (4.00-11.30)
--- NOTE | 2023-07-30 09:27 | NUR ---
pt sitting up on the side of the bed, he is pleasant and cooperative with care this am, a/ox4, states he has pain 10/02 this am, administered ultram, lungs are clear but dim in bases, resp even and unlabored at rest, currently on 4liters which is his baseline, no cough noted, hrr, 2-3 + edema noted to b/l bebo, has scrotal edema reported and a umbilical hernia, piv to lfa site is clear and patent, btx4 ,reports regular bm's/voiding, skin c/w/d, bruce, states he's very weak, but refused lovenox as he is getting around in the room, jodi, call light in reach.
[2023-07-30 09:51] LABS: Alanine Aminotransfer (ALT/SGP 9 U/L (12-78); Albumin, Blood 1.1 g/dL (3.4-5.0); Albumin/Globulin Ratio 0.2 (0.8-1.8); Alk Phos 96 U/L (50-136); Anion Gap 5 mmol/L (3-11); Aspartate Aminotrans (AST/SGOT 14 U/L (12-37); Bilirubin, Total <0.1 mg/dL (0.1-1.0); Blood Urea Nitrogen 27 mg/dL (8-24); Bun/Creatinine Ratio 25.7 (12.0-20.0); CO2, Blood 41 mmol/L (21-32); Calcium, Blood 8.2 mg/dL (8.5-10.1); Chloride, Blood 98 mmol/L (98-108); Creatinine, Blood 1.05 mg/dL (0.60-1.20); Globulin, Blood 4.5 g/dL (2.2-4.0); Glomerular Filtration Rate 83 (60-); Glucose, Blood 157 mg/dL (70-99); Potassium, Blood 3.6 mmol/L (3.5-5.5); Sodium, Blood 140 mmol/L (136-145); Total Protein, Blood 5.6 g/dL (6.4-8.2)
--- NOTE | 2023-07-30 18:16 | NUR ---
pt asked for pain meds this evening, more subdued but cooperative. states he's enjoying his coffee. no further needs this shift, call light in reach.
[2023-07-30 19:25] VITALS: BP 164/91
--- NOTE | 2023-07-31 06:39 | NUR ---
Shift Summary Pt AOx4, pleasant last night. He was allowed to sleep uninterrupted per his request. He did wake up briefly around 0200 and we took his vitals, no complaints at that time. No acute changes.
[2023-07-31 09:32] LABS: BASOPHILS ABSOLUTE AUTO 0.07 K/mm3 (0.00-0.23); BASOPHILS PERCENT AUTO 1 % (0-2); EOSINOPHILS ABSOLUTE AUTO 0.32 K/mm3 (0.00-0.68); EOSINOPHILS PERCENT AUTO 5 % (0-6); Hematocrit 32.3 % (37.0-53.0); Hemoglobin 10.6 g/dL (13.5-17.5); IMMATURE GRAN ABSOLUTE AUTO 0.02 K/mm3 (0.00-0.10); IMMATURE GRAN PERCENT AUTO 0 % (0-1); LYMPHOCYTES ABSOLUTE AUTO 0.97 K/mm3 (0.84-5.20); LYMPHOCYTES PERCENT AUTO 14 % (21-46); MONOCYTES ABSOLUTE AUTO 0.53 K/mm3 (0.16-1.47); MONOCYTES PERCENT AUTO 8 % (4-13); Mean Corpuscular HGB 29.1 pg (26.0-34.0); Mean Corpuscular HGB Conc 32.8 g/dL (31.5-36.5); Mean Corpuscular Volume 89 fL (80-100); Mean Platelet Volume 9.3 fL (9.1-12.4); NEUTROPHILS ABSOLUTE AUTO 4.85 K/mm3 (1.96-9.15); NEUTROPHILS PERCENT AUTO 72 % (41-73); Platelet Count 255 K/mm3 (150-400); RDW Coefficient Variation 13.2 % (11.7-14.2); RDW Standard Deviation 43.3 fL (35.1-46.3); Red Blood Cell Count 3.64 M/mm3 (4.30-5.90); White Blood Cell Count 6.76 K/mm3 (4.00-11.30)
[2023-07-31 09:46] LABS: Bun/Creatinine Ratio 29.1 (12.0-20.0); Calcium, Blood 7.5 mg/dL (8.5-10.1); Creatinine, Blood 1.03 mg/dL (0.60-1.20); Potassium, Blood 3.7 mmol/L (3.5-5.5)
[2023-07-31 12:20] LABS: SARS-Cov-2 (COVID-19) PCR, MMC NEGATIVE (NEGATIVE)
--- NOTE | 2023-07-31 14:21 | NUR ---
PT SLEEPING AT START OF SHIFT AND REFUSED TO BE DISTURBED UNTIL BREAKFAST. PT THEN AWAKE AND SITTING UP TO EOB FOR BREAKFAST. PT WAS MOSTLY CO-OP WITH CARE TODAY. WILLING TO WORK WITH THERAPY SOMEWHAT. PT THEN SCHEDULED TO D/C TO FOR REHAB. PRODUCTION LINE ASSEMBLER ARRANGED FOR TX. PT D/C'D VIA W/C WITH ALL BELONGINGS.
== END 2023-07-31 13:53 | DRG 291 ==
LOC: ER 18:46 → MEDS 18:47 → ENPENDDIS 07-29 10:44 → MEDS 07-31 13:53
PROVIDERS: Emergency Medicine; Family Medicine; Internal Medicine; ADMIT Internal Medicine
DX: I11.0 Hypertensive heart disease with heart failure (principal); I50.33 Acute on chronic diastolic (congestive) heart failure; J96.11 Chronic respiratory failure with hypoxia; Z68.41 Body mass index [BMI] 40.0-44.9, adult; Z59.00 Homelessness unspecified; J44.9 Chronic obstructive pulmonary disease, unspecified; F31.9 Bipolar disorder, unspecified; L40.50 Arthropathic psoriasis, unspecified; D64.9 Anemia, unspecified; E66.09 Other obesity due to excess calories; F43.21 Adjustment disorder with depressed mood; K43.9 Ventral hernia without obstruction or gangrene; Z79.82 Long term (current) use of aspirin; Z86.73 Personal history of transient ischemic attack (TIA), and cerebral infarction without residual deficits; Z79.899 Other long term (current) drug therapy; Z79.51 Long term (current) use of inhaled steroids; Z87.891 Personal history of nicotine dependence
CPT/HCPCS: 36415; 71045; 80048; 80053; 81001; 83880; 84484; 85025; 93005; 93010; 93306; 94640; 94664; 94760; 94761; 96374; 96376; 97110; 97162; 97164; 97165; 97530; 97535; 99285-25; A9270; G0378; J1650; J1940; U0002